=== PATIENT | female | born 1960 | race Caucasian/White ===

== ENCOUNTER → 2021-12-04 13:26 | Outpatient (BNVA) | payer MEDICARE, MEDICAID, SELFPAY | PROVIDERS: PCP Nurse Practitioner Family; Visit Provider Internal Medicine | DX: M48.062 Spinal stenosis, lumbar region with neurogenic claudication (principal) | CPT/HCPCS: 99202 ==

== ENCOUNTER → 2021-12-08 10:28 | Outpatient (BNVA) | payer MEDICARE, MEDICAID, SELFPAY | PROVIDERS: PCP Nurse Practitioner Family; Visit Provider Internal Medicine | DX: M48.062 Spinal stenosis, lumbar region with neurogenic claudication (principal) | CPT/HCPCS: 99212 ==

== ENCOUNTER 2022-07-24 14:53 | Outpatient (REF) | payer MEDICARE, MEDICAID, SELFPAY ==
--- NOTE | ~2022-07-24 | XR_ITS ---
EXAMINATION: XR LUMBOSACRAL SPINE WITH OBLIQUES CLINICAL INFORMATION: Spinal stenosis. COMPARISON: None available. TECHNIQUE: AP, both oblique, and lateral views of the lumbar spine. Lateral view of the lumbosacral junction. FINDINGS: There is normal lumbar lordosis. There is a disc prosthesis at the L3-L4 stabilized with bilateral pedicle screws and interconnecting rods. There is mild loss of L5-S1 disc height. Rest the disc heights, vertebral heights and alignment is normal. There is minimal anterior subluxation L5 over S1.. On flexion-extension views there is no subluxation seen at the fused disc level. XR/XR lumbar spine 4V min IMPRESSION: Helical 3-4 disc prosthesis stabilized with posterior hardware for fusion. Mild degenerative disc changes L5-S1 disc level. Minimal grade 1 anterior subluxation L5 over S1
== END 2022-07-24 14:54 | disposition home or self-care (01) ==
LOC: HO.HOSX 14:53
PROVIDERS: Visit Provider Neurological Surgery
DX: M48.062 Spinal stenosis, lumbar region with neurogenic claudication (principal); R20.0 Anesthesia of skin; Z98.1 Arthrodesis status
CPT/HCPCS: 72110; 99212

== ENCOUNTER 2023-01-01 14:53 | Outpatient (AMB) | payer MEDICARE, MEDICAID, SELFPAY ==
--- NOTE | 2023-01-01 15:33 | HO.SPINEOV ---
Intake Intake Visit Reasons: follow up mri Intake Note: Ms. Rollins is here today to discuss the result of her MRI. Destination Imagination Coordinator Required: No Allergies celecoxib [From CELEBREX] Allergy (Unknown, Verified 01/18/23 13:20) SWELLING rofecoxib [From VIOXX] Allergy (Unknown, Verified 01/18/23 13:20) SWELLING orphenadrine [From Norflex] Adverse Reaction (Severe, Verified 01/18/23 13:20) urticaria Assessment & Plan Assessment & Plan (1) Bilateral carpal tunnel syndrome: Code(s): G56.03 - Carpal tunnel syndrome, bilateral upper limbs (2) S/P cervical spinal fusion: Code(s): Z98.1 - Arthrodesis status Plan Dear colleague, On 12/31/2022 S over follow-up Soo rollins to discuss the MRI results of the cervical spine. Unfortunately, the wrong study was loaded on the CD. I reviewed her symptoms again in the office. She states that she has numbness in her bilateral hands that wakes her up at night, increased when she is under phone or reads a book. Right side is more affected than the left side. She had carpal tunnel syndrome release done several years ago. And EMG is apparently positive for carpal tunnel syndrome bilaterally. On exam, there is a positive Tinel and Phalen test. In summary, new neck pain and a bilateral carpal tunnel syndrome. She will return to the office with the MRI of the cervical spine to see if additional surgery is required. I will schedule her for a median nerve release to address the recurrent carpal tunnel after I have reviewed the MRI of the cervical spine. Thank you for letting me take care of your patient. Lan Butler MD, PhD Spine Fellowship Trained Neurosurgeon Director, [facility] Coding Level of Care Code Est Pt Level 3 (67547) Diagnoses Bilateral carpal tunnel syndrome G56.03 S/P cervical spinal fusion Z98.1
== END 2023-01-01 15:50 | disposition home or self-care (01) ==
PROVIDERS: PCP Nurse Practitioner Family; Visit Provider Neurological Surgery
DX: G56.03 Carpal tunnel syndrome, bilateral upper limbs (principal); Z98.1 Arthrodesis status
CPT/HCPCS: 99213

== ENCOUNTER → 2023-01-01 14:53 | Outpatient (BNVA) | payer MEDICARE, MEDICAID, SELFPAY | PROVIDERS: PCP Nurse Practitioner Family; Visit Provider Physician Assistant | DX: G56.03 Carpal tunnel syndrome, bilateral upper limbs (principal); Z98.1 Arthrodesis status | CPT/HCPCS: 99212 ==

== ENCOUNTER 2023-01-22 13:21 | Outpatient (AMB) | payer MEDICARE, MEDICAID, SELFPAY ==
--- NOTE | 2023-01-22 13:50 | A.SPINEOV_ITS ---
Intake Intake Visit Reasons: mri follow up Intake Note: Ms. Rollins is here today to discuss results of her MRI. MRI done @ [facility]disc here. Document Image Technician Required: No Allergies celecoxib [From CELEBREX] Allergy (Unknown, Verified 01/18/23 13:20) SWELLING rofecoxib [From VIOXX] Allergy (Unknown, Verified 01/18/23 13:20) SWELLING orphenadrine [From Norflex] Adverse Reaction (Severe, Verified 01/18/23 13:20) urticaria Assessment & Plan Assessment & Plan (1) Bilateral carpal tunnel syndrome: Code(s): G56.03 - Carpal tunnel syndrome, bilateral upper limbs Plan dear colleague, On 01/22/2023 I saw for follow-up Soo rollins. She suffering from bilateral carpal tunnel syndrome and neck pain. We reviewed the MRI of the cervical spine today which shows no new abnormalities explaining or neck pain. Spinal cord is well decompressed. The carpal tunnel symptoms are bothering her. She constantly drops objects and develops numbness of her hands at night and when she is on the phone. The left hand is more affected than the right hand. On exam, Tinel is positive. In summary, she suffering from a bilateral carpal tunnel syndrome. I scheduled her for a left carpal tunnel release on 03/22/2022. Thank you for letting me take care of your patient. Lan Butler MD, PhD Spine Fellowship Trained Neurosurgeon Director, [facility] Coding Level of Care Code Est Pt Level 2 (21688) Diagnoses Bilateral carpal tunnel syndrome G56.03
== END 2023-01-22 14:10 | disposition home or self-care (01) ==
PROVIDERS: PCP Family Medicine; Visit Provider Neurological Surgery
DX: G56.03 Carpal tunnel syndrome, bilateral upper limbs (principal)
CPT/HCPCS: 99212

== ENCOUNTER → 2023-01-22 13:21 | Outpatient (BNVA) | payer MEDICARE, MEDICAID, SELFPAY | PROVIDERS: PCP Family Medicine; Visit Provider Neurological Surgery | DX: G56.03 Carpal tunnel syndrome, bilateral upper limbs (principal) | CPT/HCPCS: 99212 ==